=== PATIENT | female | born 1995 | race Caucasian/White ===

== ENCOUNTER 2018-09-25 06:41 | Emergency (ER) | payer MEDICAID ==
[~2018-09-25] VITALS: Ht 160 cm; Wt 65.1 kg
[2018-09-25 07:29] LABS: microscopic required? NO
[2018-09-25 07:51] LABS: BASOPHIL % 0.4 % (0-2); PLATELET COUNT 379 x10^3mcL (130-400)
[2018-09-25 07:54] LABS: RED CELL DISTRIBUTION WIDTH 15.5 % (11.5-14.5)
[2018-09-25 08:10] LABS: UA SPECIFIC GRAVITY 1.015 (1.005-1.035); urine erythrocyte NEGATIVE (NEGATIVE)
[2018-09-25 08:11] LABS: ALBUMIN 3.9 g/dL (3.4-5.0); ALKALINE PHOSPHATASE 94 U/L (46-116); ALT/SGPT 36 U/L (14-59); AST/SGOT 13 U/L (15-37); BILIRUBIN TOTAL 0.3 mg/dL (0.20-1.00); CARBON DIOXIDE 27.4 mmol/L (21-32); CHLORIDE SERUM 104 mmol/L (98-107); CHOLESTEROL 172 mg/dL (<200); CREATININE SERUM 0.6 mg/dL (0.6-1.0); GFR1 > 60 mL/min; GLUCOSE SERUM 109 mg/dL (74-106); LIPASE 86 IU/L (73-393); SODIUM SERUM 140 mmol/L (136-145); TOTAL PROTEIN, SERUM 7.9 g/dL (6.4-8.2)
[2018-09-25 10:50] VITALS: BP 111/70
== END 2018-09-25 10:51 | disposition home or self-care (01) ==
LOC: ED 06:41
PROVIDERS: Emergency Medicine
DX: K80.70 Calculus of gallbladder and bile duct without cholecystitis without obstruction (principal); Z98.890 Other specified postprocedural states
CPT/HCPCS: J1885; J7030; Q0092

== ENCOUNTER 2018-09-27 20:49 | Inpatient (IN) | payer MEDICAID ==
[~2018-09-27] VITALS: Ht 154.9 cm; Wt 66.3 kg
[2018-09-27 21:36] VITALS: Ht 154.9 cm; Wt 66.3 kg
--- NOTE | 2018-09-27 21:39 | NUR ---
PT SENT TO LOBBY TO AWAIT ROOM. RESPIRATIONS E/U NO S/S OF DISTRESS. AMBULATES WITH STEADY GAIT AND SPEAKS IN CLEAR AND CONCISE SENTENCES
[2018-09-27 22:31] LABS: PLATELET COUNT 369 x10^3mcL (130-400)
[2018-09-27 22:33] LABS: RED CELL DISTRIBUTION WIDTH 15.9 % (11.5-14.5)
[2018-09-27 22:34] LABS: CALCIUM 9.3 mg/dL (8.5-10.1); CARBON DIOXIDE 27.1 mmol/L (21-32); CHLORIDE SERUM 104 mmol/L (98-107); CREATININE SERUM 0.6 mg/dL (0.6-1.0); GFR1 > 60 mL/min; GLUCOSE SERUM 89 mg/dL (74-106); POTASSIUM SERUM 4.4 mmol/L (3.5-5.1); SODIUM SERUM 139 mmol/L (136-145)
[2018-09-27 22:39] LABS: ALBUMIN 3.6 g/dL (3.4-5.0); ALKALINE PHOSPHATASE 121 U/L (46-116); ALT/SGPT 50 U/L (14-59); AST/SGOT 32 U/L (15-37); BILIRUBIN TOTAL 0.21 mg/dL (0.20-1.00); LIPASE 112 IU/L (73-393)
--- NOTE | 2018-09-28 00:20 | NUR ---
PT C/O SHARP RUQ PAIN AND SUBJECTIVE FEVER SINCE WEDNESDAY PT STS 12 EPISODES OF VOMITING PT AAOX4 RESPS E/U +N -V AT THIS TIME PT AFEBRILE PT DENIES ANY OTHER S/S PT IN NO ACUTE DISTRESS AT THIS TIME
--- NOTE | 2018-09-28 01:21 | NUR ---
PT TAKEN TO US VIA W/C
--- NOTE | 2018-09-28 01:56 | NUR ---
REPORT CALLED TO YAZMIN, RECEIVING RN ON MED/SURG TO ASSUME CARE FOR PT.
--- NOTE | 2018-09-28 02:02 | NUR ---
PT TRANSPORTED VIA WHEELCHAIR TO MED SURG AT THIS TIME BY EMT MARIE. PT IS AWAKE AND ALERT, RESP E/U, NAD NOTED UPON LEAVING ED. PT AND HER BROTHER AT BEDSIDE VERBALIZED UNDERSTANDING OF PLAN OF CARE. NS BOLUS AND ZOSYN SENT WITH PT TO MED/SURG TO BE COMPLETED ON THE FLOOR, VIRGIE ARCE AWARE.
[2018-09-28 02:10] VITALS: BP 97/54
--- NOTE | 2018-09-28 02:10 | NUR ---
PATIENT RECEIVED FROM ER VIA WHEELCHAIR, CAME IN FOR SHARP RUQ ABDOMINAL PAIN X4 DAYS, N/V. PATIENT AWAKE, ALERT, ORIENTED X4. NIGERIAN SPEAKING. RESPIRATION EVEN AND UNLABORED, ON ROOM AIR. IV SITE TO LEFT HAND PATENT AND INTACT. FEELS LIGHTHEADED. VOIDING FREELY. VOIDING FREELY. SKIN DRY AND INTACT. MRSA SWAB DONE. WILL CONTINUE TO MONITOR.
[2018-09-28 02:22] LABS: CHOLESTEROL/HDL RATIO 3.6
--- NOTE | 2018-09-28 02:42 | NUR ---
RECEIVED CRITICAL FINDING FOR ULTRASOUND. RECEIVED FROM FLORY WITH ON RAD. MADE AWARE.
[2018-09-28 04:30] VITALS: BP 94/52
--- NOTE | 2018-09-28 06:31 | NUR ---
PATIENT RESTING IN BED. RESPIRATION EVEN AND UNLABORED, ON ROOM AIR. MEDICATED WITH TORADOL 15 MG IVP FOR SHARP RUQ ABDOMINAL PAIN, 12/27. IV SITE NO SIGN OF INFILTRATION. MAINTAINED ON NPO EXCEPT MEDS. ASSISTED WITH NEEDS. SAFETY OBSERVED. PLACED BED IN THE LOWEST POSITION. PLACED CALL LIGHT WITHIN REACH AT ALL TIMES.
[2018-09-28 07:06] LABS: BASOPHIL % 0.3 % (0-2); PLATELET COUNT 334 x10^3mcL (130-400)
--- NOTE | 2018-09-28 07:07 | NUR ---
RECEIVED REPORT FROM YAZMIN GARVIN. PT RESTING COMFORTABLY IN BED WITH FAMILY AT BEDSIDE. PT ON ROOM AIR NO C/O SOB AND NO DISTRESS NOTED. IV TO LT HAND IS PATENT AND INFUSING NS @ 100 ML/HR. NO REDNESS OR PAIN. ALL QUESTIONS AND CONCERNS ADDRESSED.
[2018-09-28 07:23] LABS: CALCIUM 8.9 mg/dL (8.5-10.1); CARBON DIOXIDE 23.1 mmol/L (21-32); CHLORIDE SERUM 107 mmol/L (98-107); CREATININE SERUM 0.5 mg/dL (0.6-1.0); GFR1 > 60 mL/min; GLUCOSE SERUM 82 mg/dL (74-106); POTASSIUM SERUM 3.7 mmol/L (3.5-5.1); SODIUM SERUM 141 mmol/L (136-145)
[2018-09-28 09:22] VITALS: BP 94/48
[2018-09-28 11:18] LABS: microscopic required? NO
[2018-09-28 12:07] LABS: UA SPECIFIC GRAVITY 1.015 (1.005-1.035); urine erythrocyte NEGATIVE (NEGATIVE)
[2018-09-28 12:10] LABS: AMPHETAMINE QUAL UR NONE DETECTED (See below)
--- NOTE | 2018-09-28 12:26 | NUR ---
IN TO SEE PATIENT AND ASSESS NEEDS. PT RESTING COMFORTABLY IN BED. ALL NEEDS MET. STILL AWAITING SURGEON CONSULT.
--- NOTE | 2018-09-28 13:36 | NUR ---
REPORT GIVEN TO AMY GARVIN IN OR. ALL QUESTIONS AND CONCERNS ADDRESSED. ALL CARES ENDORSED.
--- NOTE | 2018-09-28 13:48 | NUR ---
Discount pharmacy card and list to low cost medical clinics given to patient by Nidhi Gee.
--- NOTE | 2018-09-28 13:55 | NUR ---
DR REYES IN TO OBTAIN CONSENT FOR SURGERY FROM PATIENT VIA DOOR ATTENDANT PHONE.
--- NOTE | 2018-09-28 14:15 | NUR ---
PT TAKEN DOWNSTAIRS FOR SURGERY VIA [facility].
--- NOTE | 2018-09-28 17:47 | NUR ---
RECEIVED REPORT FROM CHRISTO GARVIN IN OR. PATIENT RESTING COMFORTABLY AFTER LAP SERGE. PT HAS INCISIONS X4 TO ABD WITH SUTURES, AVELINO AND BAND AIDS. 1200ML LR RECEIVED, EBL 100ML, URINE 100ML, NO C/O PAIN, VITALS STABLE (SEE DOCUMENTATION). AWAITING PT RETURN TO FLOOR.
--- NOTE | 2018-09-28 18:50 | NUR ---
PT RETURNED TO FLOOR VIA GUERNEY ACCOMPANIED BY RN DES. PT DROWSY BUT AROUSABLE AND RESTING COMFORTABLY IN BED WITH FAMILY AT BEDSIDE. ALL NEEDS MET. FLUIDS RESUMED. VITALS TAKEN (SEE DOCUMENTATION). PT ON ROOM AIR WITH NO DISTRESS NOTED. WILL ENDORSE ALL CARE TO ONCOMING NURSE.
--- NOTE | 2018-09-28 20:00 | NUR ---
PT A/A/O X4. DENIES DIZZINESS AND HEADACHE. BREATH SOUNDS CLEAR. BREATHING EVEN AND UNLABORED ON ROOM AIR. DENIES CHEST PAIN AND PRESSURE. HYPOACTIVE BOWEL SOUNDS NOTED. NO C/O N/V AND ABD PAIN. 4 SCATTERED BAND AIDS NOTED ON ABD C/D/I. S/P LAP SERGE. PT DENIES VOIDING, PASSING GAS AND BURPING. INSTRUCTED THE PT TO NOTIFY US IF SHE PASSSED GAS, BURPED OR VOIDED. PT VERBALIZED UNDERSTANDING. IV INTACT ON THE LEFT HAND INFUSING WITH NS AT 100 ML/HR. MADE PT COMFORTABLE. PLACED CALL LIGHT WITH IN REACH. WILL CONTINUE TO MONITOR.
--- NOTE | 2018-09-28 21:13 | NUR ---
PT C/O ABD PAIN. GAVE PT TORADOL IVP. PT TOLERATED IT WELL. WILL CONTINUE TO MONITOR.
[2018-09-28 21:32] VITALS: BP 95/54
--- NOTE | 2018-09-29 03:11 | NUR ---
PT C/O ABD PAIN. GAVE PT TORADOL IVP. PT TOLERATED IT WELL. WILL CONTINUE TO MONITOR.
[2018-09-29 05:17] VITALS: BP 99/64
--- NOTE | 2018-09-29 06:28 | NUR ---
PT QUIET AND RESTING. SCATTERED BAND AIDS C/D/I ON THE ABD. NO C/O ABD PAIN THUS FAR. PT PASSED GAS, BURPED AND VOIDED PER PT. ASKED DR. KEARNS IF THE DIET IS GOING TO BE ADVANCED. NO NEW ORDERS GIVEN. IV INTACT AND INFUSING ORDERED. MADEPT COMFORTABLE. WILL ENDORSE TO THE AM NURSE ACCORDINGLY.
[2018-09-29 07:15] LABS: BASOPHIL % 0.1 % (0-2); PLATELET COUNT 355 x10^3mcL (130-400)
[2018-09-29 07:23] LABS: RED CELL DISTRIBUTION WIDTH 15.7 % (11.5-14.5)
[2018-09-29 07:29] LABS: CALCIUM 8.8 mg/dL (8.5-10.1); CARBON DIOXIDE 25.5 mmol/L (21-32); CHLORIDE SERUM 107 mmol/L (98-107); CREATININE SERUM 0.5 mg/dL (0.6-1.0); GFR1 > 60 mL/min; GLUCOSE SERUM 99 mg/dL (74-106); POTASSIUM SERUM 4.2 mmol/L (3.5-5.1); SODIUM SERUM 141 mmol/L (136-145)
--- NOTE | 2018-09-29 07:40 | NUR ---
PATIENT SLEEPING IN BED, AROUSABLE TO COMMAND. PATIENT DENIES PAIN. PATIENT STATES SHE HAS BURPED & PASSED GAS, NO BM NOTED FOR TODAY. PATIENT IS NPO AT THIS TIME, DR. REYES AWARE TO ADVANCED DIET. PATIENT IS AMBULATORY, NO WEAKNESS NOTED. ABDOMINAL INCISION X4 NOTED WITH SUTURES AND AVELINO COVERED WITH DRESSING. NO DRAINAGE NOTED, BANDAIDS CDI. NS IV INFUSING TO 100 ML/HR, IV SITE CDI & PATENT, NO S/S OF INFILTRATION. CALL LIGHT WITHIN REACH, BED IN LOW POSITION, WILL CONTINUE TO MONITOR FOR CHANGES.
[2018-09-29 08:35] VITALS: BP 103/65
--- NOTE | 2018-09-29 09:00 | NUR ---
PATIENT ON CLEAR LIQUID DIET, PATIENT IS TOLERATING FLUIDS. DENIES PAIN AT THIS TIME. CALL LIGHT WITHIN REACH, BED IN LOW POSITION, WILL CONTINUE TO MONITOR FOR CHANGES.
[2018-09-29] MEDS ORDERED: IBUPROFEN400 MG PO (14:25)
[2018-09-29] MEDS ORDERED: CIPROFLOXACIN500 MG PO (14:26)
--- NOTE | 2018-09-29 14:34 | NUR ---
PATIENT C/O PAIN TO ABDOMEN 06/26, MEDICATED PATIENT WITH TYLENOL. REPOSITIONED PATIENT FOR COMFORT, EDUCATED PATIENT ON PAIN MANAGEMENT. WILL CONTINUE TO MONITOR, CALL LIGHT WITHIN REACH, BED IN LOW POSITION FOR SAFETY PRECAUTION. FAMILY AT BEDSIDE.
[2018-09-29 16:00] VITALS: BP 103/65
[2018-09-29 16:55] VITALS: BP 100/55
--- NOTE | 2018-09-29 17:50 | NUR ---
PATIENT WAS DISCHARGED HOME WITH BROTHER. PATIENT DENIES PAIN UPON DISCHARGE. PATIENT IS STABLE. PROVIDED PATIENT WITH COPY OF D/C INSTRUCTION, PATIENT UNDERSTANDS AND AGREES WITH POC, INCLUDING FOLLOW UP WITH PCP AND MEDICATIONS. PROVIDED PATIENT WITH DR. SPARKS PHONE NUMBER, TO SET UP APPT. ARMBAND AND IV TO L HAND REMOVED, CATH INTACT. PATIENT TOOK HOME ALL PERSONAL BELONGING. ALL QUESTIONS AND CONCERNS ADDRESSED.
== END 2018-09-29 17:49 | disposition home or self-care (01) | DRG 263 ==
LOC: ED 20:49 → MU 09-28 01:08
PROVIDERS: Family Medicine Addiction Medicine; ADMIT Internal Medicine
PROC: 0F944ZZ Drainage of Gallbladder, Percutaneous Endoscopic Approach (ICD-10-PCS; 2018-09-28)
PROC: 0FT44ZZ Resection of Gallbladder, Percutaneous Endoscopic Approach (ICD-10-PCS; principal; 2018-09-28 14:30)
DX: K80.63 Calculus of gallbladder and bile duct with acute cholecystitis with obstruction (principal); K82.1 Hydrops of gallbladder
CPT/HCPCS: G0378; J0330; J1170; J1885; J2001; J2405; J2543; J2704; J2710; J3010; J3490; J7030; J7120

== ENCOUNTER 2019-02-17 21:52 | Emergency (ER) | payer MEDICAID ==
[~2019-02-17] VITALS: Ht 154.9 cm; Wt 70.3 kg
[~2019-02-17 21:52] MED LIST: CIPROFLOXACIN500 MG PO; IBUPROFEN400 MG PO
[2019-02-17 21:59] VITALS: BP 138/77
[2019-02-17 23:06] LABS: BASOPHIL % 0.3 % (0-2); PLATELET COUNT 346 x10^3mcL (130-400); RED CELL DISTRIBUTION WIDTH 15.1 % (11.5-14.5)
[2019-02-17 23:30] LABS: CALCIUM 9.1 mg/dL (8.5-10.1); CARBON DIOXIDE 26.3 mmol/L (21-32); CHLORIDE SERUM 102 mmol/L (98-107); CREATININE SERUM 0.6 mg/dL (0.6-1.0); GFR1 > 60 mL/min; GLUCOSE SERUM 93 mg/dL (74-106); POTASSIUM SERUM 3.9 mmol/L (3.5-5.1); SODIUM SERUM 136 mmol/L (136-145)
[2019-02-17 23:35] LABS: ALBUMIN 3.9 g/dL (3.4-5.0); ALKALINE PHOSPHATASE 94 U/L (46-116); ALT/SGPT 49 U/L (14-59); AST/SGOT 22 U/L (15-37); BILIRUBIN TOTAL 0.3 mg/dL (0.20-1.00); TOTAL PROTEIN, SERUM 7.5 g/dL (6.4-8.2)
== END 2019-02-18 01:10 | disposition home or self-care (01) ==
LOC: ED 21:52
PROVIDERS: Emergency Medicine
DX: O20.8 Other hemorrhage in early pregnancy (principal); Z3A.01 Less than 8 weeks gestation of pregnancy
CPT/HCPCS: 36415

== ENCOUNTER 2019-03-08 23:10 | Emergency (ER) | payer MEDICAID ==
[2019-03-08 23:39] LABS: BASOPHIL % 0.2 % (0-2); PLATELET COUNT 357 x10^3mcL (130-400)
[2019-03-08 23:41] LABS: RED CELL DISTRIBUTION WIDTH 15.1 % (11.5-14.5)
[2019-03-08 23:50] LABS: CALCIUM 8.7 mg/dL (8.5-10.1); CARBON DIOXIDE 25.5 mmol/L (21-32); CHLORIDE SERUM 103 mmol/L (98-107); CREATININE SERUM 0.5 mg/dL (0.6-1.0); GFR1 > 60 mL/min; GLUCOSE SERUM 90 mg/dL (74-106); POTASSIUM SERUM 3.8 mmol/L (3.5-5.1); SODIUM SERUM 137 mmol/L (136-145)
[2019-03-08 23:55] LABS: ALBUMIN 3.2 g/dL (3.4-5.0); ALKALINE PHOSPHATASE 88 U/L (46-116); ALT/SGPT 26 U/L (14-59); AST/SGOT 16 U/L (15-37); BILIRUBIN TOTAL 0.2 mg/dL (0.20-1.00); TOTAL PROTEIN, SERUM 7.4 g/dL (6.4-8.2)
[2019-03-09 01:35] VITALS: BP 99/42
== END 2019-03-09 01:35 | disposition home or self-care (01) ==
LOC: ED 23:10
PROVIDERS: Emergency Medicine
DX: O21.0 Mild hyperemesis gravidarum (principal); O26.891 Other specified pregnancy related conditions, first trimester; E86.0 Dehydration; R10.2 Pelvic and perineal pain; Z3A.08 8 weeks gestation of pregnancy
CPT/HCPCS: J2405

== ENCOUNTER 2019-03-17 23:04 | Emergency (ER) | payer MEDICAID ==
[~2019-03-17] VITALS: Ht 160 cm; Wt 70.3 kg
[2019-03-17 23:14] VITALS: Ht 160 cm; Wt 70.3 kg
[2019-03-17 23:43] LABS: BASOPHIL % 0.3 % (0-2); PLATELET COUNT 325 x10^3mcL (130-400); RED CELL DISTRIBUTION WIDTH 15.2 % (11.5-14.5)
[2019-03-18 00:10] LABS: CALCIUM 8.9 mg/dL (8.5-10.1); CARBON DIOXIDE 22.2 mmol/L (21-32); CHLORIDE SERUM 102 mmol/L (98-107); CREATININE SERUM 0.6 mg/dL (0.6-1.0); GFR1 > 60 mL/min; GLUCOSE SERUM 104 mg/dL (74-106); POTASSIUM SERUM 3.4 mmol/L (3.5-5.1); SODIUM SERUM 139 mmol/L (136-145)
[2019-03-18 00:14] LABS: ALBUMIN 3.5 g/dL (3.4-5.0); ALKALINE PHOSPHATASE 82 U/L (46-116); ALT/SGPT 30 U/L (14-59); AMYLASE 65 U/L (25-115); AST/SGOT 20 U/L (15-37); BILIRUBIN TOTAL 0.3 mg/dL (0.20-1.00); LIPASE 79 IU/L (73-393); TOTAL PROTEIN, SERUM 7.9 g/dL (6.4-8.2)
[2019-03-18 00:35] VITALS: BP 103/56
== END 2019-03-18 00:41 | disposition home or self-care (01) ==
LOC: ED 23:04
PROVIDERS: Emergency Medicine
DX: O21.0 Mild hyperemesis gravidarum (principal); R10.817 Generalized abdominal tenderness; Z3A.11 11 weeks gestation of pregnancy
CPT/HCPCS: J2405; J7030

== ENCOUNTER 2019-04-05 16:05 | Emergency (ER) | payer MEDICAID ==
[~2019-04-05] VITALS: Ht 160 cm; Wt 68.9 kg
[2019-04-05 16:15] VITALS: Ht 160 cm; Wt 68.9 kg
[2019-04-05 17:43] LABS: PLATELET COUNT 314 x10^3mcL (130-400)
[2019-04-05 17:46] LABS: RED CELL DISTRIBUTION WIDTH 14.8 % (11.5-14.5)
[2019-04-05 18:03] LABS: CALCIUM 9.5 mg/dL (8.5-10.1); CARBON DIOXIDE 26.7 mmol/L (21-32); CHLORIDE SERUM 102 mmol/L (98-107); CREATININE SERUM 0.5 mg/dL (0.6-1.0); GFR1 > 60 mL/min; GLUCOSE SERUM 74 mg/dL (74-106); POTASSIUM SERUM 3.8 mmol/L (3.5-5.1); SODIUM SERUM 136 mmol/L (136-145)
[2019-04-05 18:07] LABS: ALKALINE PHOSPHATASE 80 U/L (46-116); ALT/SGPT 27 U/L (14-59); AST/SGOT 15 U/L (15-37); BILIRUBIN TOTAL 0.31 mg/dL (0.20-1.00)
[2019-04-05 18:08] LABS: ALBUMIN 3.3 g/dL (3.4-5.0)
[2019-04-05 18:48] VITALS: BP 115/59
== END 2019-04-05 18:48 | disposition home or self-care (01) ==
LOC: ED 16:05
PROVIDERS: Emergency Medicine
DX: O26.891 Other specified pregnancy related conditions, first trimester (principal); R42 Dizziness and giddiness; H92.02 Otalgia, left ear; R11.10 Vomiting, unspecified; Z3A.11 11 weeks gestation of pregnancy
CPT/HCPCS: J7030

== ENCOUNTER 2019-06-04 17:30 | Emergency (ER) | payer MEDICAID ==
[~2019-06-04] VITALS: Ht 152.4 cm; Wt 68.5 kg
[2019-06-04 17:59] VITALS: Ht 152.4 cm; Wt 68.5 kg
[2019-06-04 18:49] LABS: BASOPHIL % 0.3 % (0-2); PLATELET COUNT 321 x10^3mcL (130-400); RED CELL DISTRIBUTION WIDTH 14.1 % (11.5-14.5)
[2019-06-04 19:11] LABS: CALCIUM 8.7 mg/dL (8.5-10.1); CARBON DIOXIDE 25.6 mmol/L (21-32); CHLORIDE SERUM 105 mmol/L (98-107); CREATININE SERUM 0.4 mg/dL (0.6-1.0); GFR1 > 60 mL/min; GLUCOSE SERUM 98 mg/dL (74-106); POTASSIUM SERUM 3.8 mmol/L (3.5-5.1); SODIUM SERUM 140 mmol/L (136-145)
[2019-06-04 19:15] LABS: ALKALINE PHOSPHATASE 88 U/L (46-116); ALT/SGPT 20 U/L (14-59); AST/SGOT 12 U/L (15-37); BILIRUBIN TOTAL 0.2 mg/dL (0.20-1.00)
[2019-06-04 19:16] LABS: ALBUMIN 2.6 g/dL (3.4-5.0)
[2019-06-04 20:36] LABS: microscopic required? NO
[2019-06-04 20:45] LABS: urine erythrocyte NEGATIVE (NEGATIVE)
[2019-06-04 21:11] VITALS: BP 102/50
== END 2019-06-04 21:11 | disposition home or self-care (01) ==
LOC: ED 17:30
PROVIDERS: Emergency Medicine
DX: O26.892 Other specified pregnancy related conditions, second trimester (principal); R10.30 Lower abdominal pain, unspecified; M54.5 Low back pain; Z3A.16 16 weeks gestation of pregnancy
CPT/HCPCS: 36415